=== PATIENT | female | born 1960 | race Caucasian/White ===

== ENCOUNTER 2016-12-07 11:12 | Emergency (ER) | payer OTHER ==
[~2016-12-07] VITALS: Ht 177.8 cm; Wt 72.7 kg
[~2016-12-07 11:12] MED LIST: ACET1TAB42 PO; DIPH25CA6 PO; DOCU-41 PO; IMI100 PO; LAMO100T2 PO; NORE0.3523 PO; OXYM30SP18 NS; POLY17PO2 PO; POLY17PO6 PO; PROC-4 PO; VENL150C PO; marijuana INH
[2016-12-07 11:22] VITALS: BP 151/91; PULSE 108; RESP 20; O2SAT 100
[2016-12-07 11:35] VITALS: BP 125/72; PULSE 76; RESP 16; O2SAT 100
--- NOTE | 2016-12-07 11:44 | ED.REPORT ---
HPI-GI Bleed Date of Service Dec 07, 2016 ED Provider: Robi Johansen Patient is a 56 year old female who presents to the ED complaining of rectal bleeding. She reports that the toilet water is full of bright red blood whenever she urinates or defecates. Associated symptoms include weakness, confusion, dizziness, lightheadedness (onset four days ago), shaking, and problems walking. She was transfused at our facility about a month ago for similar symptoms. She states that she has a history of bleeding problems and her mother has hemophilia. She has seen Dr. Trejo and is waiting for the results of her blood tests to see if she is hemophilic. Review of her coagulation studies dated show normal coagulation. Nursing Notes Stated Complaint: ANEMIA,BLOOD LOSS Chief Complaint: Female Abdominal Pain Nursing Notes Reviewed: Yes Allergies: Coded Allergies: Sulfa (Sulfonamide Antibiotics) (Verified Allergy, Intermediate, hives/ rash, 12/07/16) Scheduled ([marijuana]) 1 DOSE INH DAILY Docusate Sodium (Colace) 100 Mg Capsule 100 MG PO Every other Day Lamotrigine (Lamotrigine) 100 Mg Tablet 100-200 MG PO BID Norethindrone (Lyza) 0.35 Mg Tablet 0.35 MG PO DAILY Polyethylene Glycol 3350 (Polyethylene Glycol 3350) 17 Gm Powd.pack 17 GM PO Q2DAY Polyethylene Glycol 3350 (Miralax) 17 Gm Powd.pack 17 GM PO DAILY Venlafaxine ER (Effexor XR) 150 Mg Capsule 150 MG PO DAILY Scheduled PRN Acetaminophen/Codeine 300-30mg (Acetaminophen/Codeine 300-30mg) 1 Each Tablet 2 TABLET PO Q4H PRN PRN For Headache Oxymetazoline HCl (Nasal [place] Sinus) 30 Ml [place] 1 SPRAY NS DAILY PRN PRN For Congestion Prochlorperazine Maleate (Compazine) 10 Mg Tablet 10 MG PO TID PRN PRN zhao with nausea Sumatriptan (Imitrex) 100 Mg Tablet 100 MG PO PRN Headache diphenhydrAMINE HCl (Benadryl) 25 Mg Capsule 25 MG PO HS PRN PRN For Congestion General Time Seen by Provider: 11:50 Chief Complaint Chief Complaint: Other (Rectal bleeding) Hx Obtained From: Patient Arrived By: Walk-in Recent Healthcare: Recent doctor visit, Recent testing Similar Sx Previous: Yes Past Medical History Past Medical History Notes: GI Dr. Ewing As of 12/07 patient states she has had 2 colonoscopies in past 6 mo. Past Medical History Seizures Anxiety Migraine Reports: Cancer Past Surgical History s/p colonoscopy (small internal hemorrhoid ) and cold biopsy forceps removal of a rectal polyp on 07/02/[address] Ewing L breast bx Reports: Tonsillectomy Family History Noncontributory Smoking History Former Smoker Social History Other Social History: Good social support, Local resident Ambulatory Status Independent Review of Systems Constitutional: Reports: Weakness - generalized, Denies: Fever GI: Reports: Abdominal pain, Hematochezia Neurologic: Reports: Confusion, Lightheaded, Problem walking, Shaking, Denies: Change LOC Complete sys rev & neg: except as marked. Physical Exam Initial Vital Signs Vital Signs (First) Date Time Temp Pulse Resp B/P Pulse Ox O2 Delivery O2 Flow Rate FiO2 12/07/16 11:22 36.4 108 20 151/91 100 Room Air Initial VS: Reviewed Head / Eyes: Atraumatic, Normocephalic Neck: Full range of motion Skin: Warm, Dry Neurologic: Alert, Oriented, Nonfocal Psychiatric: Mood/affect normal, Behavior normal, Normal thought content General/Constitutional: Awake, Alert, Well appearing, Well developed Respiratory / Chest: Breath sounds NL, Breath sounds = bilat, No respiratory distress Cardiovascular: Heart rate NL, Regular rhythm, Heart sounds NL, No gallop, No murmurs, No rubs Abdomen: Soft, Non-tender Rectum / Perineum: Sphincter tone NL trace blood on fingertip, guaiac positive Interpretation & Diagnostics Lab Results Interpretation Result Diagram: 12/07/16 1155 12/07/16 1155 Test 12/07/16 11:55 White Blood Count 7.4th/mm3 (3.8-10.1) Red Blood Count 3.38mil/mm3 (3.90-5.20) Hemoglobin 6.6g/dL (12.0-15.6) Hematocrit 22.8% (35.0-46.0) Mean Corpuscular Volume 67.5fL (81-100) Mean Corpuscular Hemoglobin 19.5pg (27.0-35.0) Mean Corpuscular Hemoglobin Concent 28.9% (32.0-37.0) Red Cell Distribution Width 21.2% (12.3-15.4) Platelet Count 272bil/L (150-400) Neutrophils (%) (Auto) 67.7% (40-74) Lymphocytes (%) (Auto) 21.3% (14-46) Monocytes (%) (Auto) 9.0% (4-12) Eosinophils (%) (Auto) 1.5% (0-5) Basophils (%) (Auto) 0.4% (0-3) Hematology Comments Prothrombin Time 10.5sec (8.1-12.5) Prothromb Time International Ratio 0.98ratio Sodium Level 135mEq/L (134-144) Potassium Level 3.8mEq/L (3.5-5.2) Chloride Level 100mEq/L (97-108) Carbon Dioxide Level 23mmol/L (18-29) Blood Urea Nitrogen 13mg/dL (6-24) Creatinine 0.81mg/dL (0.57-1.00) Estimat Glomerular Filtration Rate 106mL/min (>59) Glucose Level 110mg/dL (60-99) Calcium Level 9.0mg/dL (8.5-10.1) Total Bilirubin 0.2mg/dL (0.0-1.2) Aspartate Amino Transf (AST/SGOT) 13U/L (0-50) Alanine Aminotransferase (ALT/SGPT) 9U/L (0-32) Alkaline Phosphatase 59U/L (25-150) Total Protein 6.9g/dL (6.4-8.4) Albumin 4.6g/dL (3.4-5.0) Hold Patel Top Tube Received (Received) ECG Interpretation ECG Interpretation: sinus rate 68 no acute changes Time: 12:02 Interpreted by: ED physician Re-Eval/Medical Decision Med Decision/Clinical Course 56-year-old female with chronic GI blood loss and symptomatic anemia. Has required transfusions previously. Recently evaluated by hematology for possible coagulopathy, coagulation studies have been normal. She had mild tachycardia but otherwise is hemodynamically stable, have not noted any ongoing blood loss in the emergency department. She will be transfused 3 L and referred back to surgery for outpatient follow-up and treatment of hemorrhoids which are thought to be discharged for bleeding. Re-Evaluation/Progress : Time of Eval: 13:15 Re-Evaluation/Progress Note: Rechecked patient. Discussed coagulation test results. Discussed options of blood transfusion. Patient is requesting trasnfusion. Counseled Regarding: Diagnosis, Lab results, Need for follow-up, When/why to return to ED Discharge & Departure Impression: Primary Impression: Rectal bleeding Additional Impression: Anemia Anemia type: unspecified type Qualified Code: D64.9 - Anemia, unspecified Disposition: Home Discharge Condition All VS Reviewed: Yes Condition: Improved Additional Instructions: In the ED today we evaluated ongoing blood loss and reviewed records related to concern for hemophilia. Coagulation studies are normal, you do not have hemophilia. We transfused 3 units of blood, we suggest following up with Dr Trejo and Dr Sharma as planned. Return to ED for severe bleeding (passing blood rectally that soaks through clothing or causes you to faint). Referrals: Peng Sweeney DO (PCP) Ananth Sharma MD Scribe Attestation Portions of this note were transcribed by Robert Wong. I, Dr. Johansen personally performed the history, physical exam and medical decision-making; I reviewed and confirmed the accuracy of the information in the transcribed note. Signed by: Robert Wong 12/07/16, 1813 copies to: Ananth Sharma MD; Peng Sweeney DO; Sushant Chery MD, Donald L MD Dec 07, 2016 11:44 ROBERT WONG Dec 07, 2016 12:19
[2016-12-07 12:27] LABS: INR 0.98 ratio
[2016-12-07 13:06] LABS: EOSINOPHILS % (AUTO) 1.5 % (0-5); Mean Corpuscular Hemoglobin 19.5 pg (27.0-35.0); Mean Corpuscular Volume 67.5 fL (81-100); NEUTROPHILS % (AUTO) 67.7 % (40-74); Platelet Count 272 bil/L (150-400)
[2016-12-07 13:07] LABS: BASOPHILS % (AUTO) 0.4 % (0-3)
[2016-12-07 17:33] VITALS: BP 132/79; RESP 18; O2SAT 97
[2016-12-07 19:52] VITALS: BP 135/90; PULSE 81; RESP 14; O2SAT 100
[2016-12-07 21:04] VITALS: BP 140/93; PULSE 71; RESP 14; O2SAT 100
[2017-02-15] MEDS ORDERED: POLY17PO6 PO (16:00)
[2017-02-15] MEDS ORDERED: IMI100 PO (16:00)
[2017-02-15] MEDS ORDERED: DOCU-41 PO (16:00)
[2017-02-15] MEDS ORDERED: LAMO100T2 PO ×2 (16:00)
[2017-02-15] MEDS ORDERED: DIPH25CA6 PO (16:00)
[2017-02-15] MEDS ORDERED: PROC-4 PO (16:00)
[2017-02-15] MEDS ORDERED: VENL150T3 PO (16:00)
== END 2016-12-07 20:28 | disposition home or self-care (01) ==
LOC: SED 11:12
DX: K62.5 Hemorrhage of anus and rectum (principal); D64.9 Anemia, unspecified; R41.0 Disorientation, unspecified; R26.2 Difficulty in walking, not elsewhere classified; Z98.890 Other specified postprocedural states; Z87.891 Personal history of nicotine dependence; Z88.2 Allergy status to sulfonamides
CPT/HCPCS: 36415; 36430; 80053; 85025; 85610; 86850; 86922; 93005; 96360; 96361; 99285; P9021

== ENCOUNTER 2017-01-21 09:21 | Emergency (ER) | payer OTHER ==
[~2017-01-21] VITALS: Ht 177.8 cm; Wt 72.7 kg
[~2017-01-21 09:21] MED LIST changes: -ACET1TAB42 PO; -NORE0.3523 PO; -POLY17PO2 PO
[2017-01-21 09:25] VITALS: BP 145/79; PULSE 75; RESP 12; O2SAT 100
--- NOTE | 2017-01-21 09:35 | ED.REPORT ---
HPI-Psychiatric Illness Date of Service Jan 21, 2017 ED Provider: Dr. Barraza A 56 year old female presents to the ED complaining of Nursing Notes Stated Complaint: EMOTIONALLY OVERWHELMED Chief Complaint: Psychiatric Complaint Nursing Notes Reviewed: Yes Allergies: Coded Allergies: Sulfa (Sulfonamide Antibiotics) (Verified Allergy, Intermediate, hives/ rash, 12/07/16) Scheduled ([marijuana]) 1 DOSE INH DAILY Docusate Sodium (Colace) 100 Mg Capsule 100 MG PO Every other Day Lamotrigine (Lamotrigine) 100 Mg Tablet 100-200 MG PO BID Polyethylene Glycol 3350 (Miralax) 17 Gm Powd.pack 17 GM PO DAILY Venlafaxine ER (Effexor XR) 150 Mg Capsule 150 MG PO DAILY Scheduled PRN Oxymetazoline HCl (Nasal [place] Sinus) 30 Ml [place] 1 SPRAY NS DAILY PRN PRN For Congestion Prochlorperazine Maleate (Compazine) 10 Mg Tablet 10 MG PO TID PRN PRN zhao with nausea Sumatriptan (Imitrex) 100 Mg Tablet 100 MG PO PRN Headache diphenhydrAMINE HCl (Benadryl) 25 Mg Capsule 25 MG PO HS PRN PRN For Congestion General Time Seen by MD: 09:53 Past Medical History Past Medical History Notes: GI Dr. Ewing As of 12/07 patient states she has had 2 colonoscopies in past 6 mo. Past Medical History Seizures Anxiety Migraine Reports: Cancer Past Surgical History s/p colonoscopy (small internal hemorrhoid ) and cold biopsy forceps removal of a rectal polyp on 07/02/[address] Gildardo Maciel breast bx removal of melanoma from abdominal skin Reports: Tonsillectomy Family History Noncontributory Smoking History Former Smoker Social History Other Social History: Good social support, Local resident Ambulatory Status Independent Physical Exam Initial Vital Signs Vital Signs (First) Date Time Temp Pulse Resp B/P Pulse Ox O2 Delivery O2 Flow Rate FiO2 01/21/17 09:25 36.2 75 12 145/79 100 Room Air Discharge & Departure Referrals: Peng Sweeney DO (PCP) Hollie Attestation Portions of this note were transcribed by Michael Alexandra. I, Dr. Barraza personally performed the history, physical exam and medical decision-making; I reviewed and confirmed the accuracy of the information in the transcribed note. Signed by: Hollie Saldivar, 01/21/2017 0956. copies to: Peng Sweeney Timothy S DO Jan 21, 2017 09:35 Michael Alexandra Jan 21, 2017 10:00
[2017-02-15] MEDS ORDERED: IMI100 PO (16:00)
[2017-02-15] MEDS ORDERED: DIPH25CA6 PO (16:00)
[2017-02-15] MEDS ORDERED: LAMO100T2 PO ×2 (16:00)
[2017-02-15] MEDS ORDERED: PROC-4 PO (16:00)
[2017-02-15] MEDS ORDERED: POLY17PO6 PO (16:00)
[2017-02-15] MEDS ORDERED: VENL150T3 PO (16:00)
[2017-02-15] MEDS ORDERED: DOCU-41 PO (16:00)
== END 2017-01-21 10:30 | disposition left against medical advice (07) ==
LOC: SED 09:21
DX: F99 Mental disorder, not otherwise specified (principal); Z53.21 Procedure and treatment not carried out due to patient leaving prior to being seen by health care provider

== ENCOUNTER 2017-02-11 12:29 | Emergency (ER) | payer OTHER ==
[~2017-02-11] VITALS: Ht 177.8 cm; Wt 68.2 kg
[2017-02-11 12:31] VITALS: BP 148/89; PULSE 103; RESP 22; O2SAT 100
--- NOTE | 2017-02-11 12:50 | ED.REPORT ---
HPI-General Illness Date of Service Feb 11, 2017 ED Provider: Chen Forde MD The patient is a 56 year old female with history of anxiety, depression, panic attacks, seizures, and migraines, who presents to the emergency department complaining of rectal bleeding. The patient states she has a chronic GI bleed of unknown etiology. She has been seen and evaluated several times. She received a a blood transfusion 3 weeks ago. The bleeding started to get worse about 5 days ago. She complains of rectal pain, generalized weakness, lightheadedness (worse with standing), fatigue, and anxiety. She has been unable to stand due to the weakness. She presents today requesting a blood transfusion. Nursing Notes Stated Complaint: LOW ENERGY,NEEDS BLOOD Chief Complaint: Female Abdominal Pain Nursing Notes Reviewed: Yes Allergies: Coded Allergies: Sulfa (Sulfonamide Antibiotics) (Verified Allergy, Intermediate, hives/ rash, 02/11/17) Scheduled ([marijuana]) 1 DOSE INH DAILY Docusate Sodium (Colace) 100 Mg Capsule 100 MG PO Every other Day Lamotrigine (Lamotrigine) 100 Mg Tablet 100-200 MG PO BID Polyethylene Glycol 3350 (Miralax) 17 Gm Powd.pack 17 GM PO DAILY Venlafaxine ER (Effexor XR) 150 Mg Capsule 150 MG PO DAILY Scheduled PRN Oxymetazoline HCl (Nasal [place] Sinus) 30 Ml [place] 1 SPRAY NS DAILY PRN PRN For Congestion Prochlorperazine Maleate (Compazine) 10 Mg Tablet 10 MG PO TID PRN PRN zhao with nausea Sumatriptan (Imitrex) 100 Mg Tablet 100 MG PO PRN Headache diphenhydrAMINE HCl (Benadryl) 25 Mg Capsule 25 MG PO HS PRN PRN For Congestion General Time Seen by MD: 12:49 Chief Complaint Other (rectal bleed) Hx Obtained From: Patient, Other family... Arrived By: Walk-in Sudden in Onset?: No Onset Occurred: More than a week ago... Symptom Duration: Since onset Severity: Current: No pain currently Severity: Maximum: No pain Recent Healthcare: No recent hospitalization, Recent doctor visit Similar Sx Previous: Yes Past Medical History Past Medical History Notes: GI Dr. Ewing Past Medical History Seizures Anxiety Migraine Chronic GI bleed Reports: Cancer Past Surgical History S/p colonoscopy (small internal hemorrhoid ) and cold biopsy forceps removal of a rectal polyp on 07/02/[address] Gildardo Maciel breast bx Removal of melanoma from abdominal skin Reports: Tonsillectomy Family History Noncontributory Smoking History Former Smoker Social History Other Social History: Good social support, Local resident Ambulatory Status Independent Review of Systems +rectal bleed Full Review of Systems Constitutional: Reports: Fatigue, Weakness - generalized GI: Reports: Rectal pain Neurologic: Reports: Lightheaded, Weakness Psychiatric: Reports: Anxiety Complete sys rev & neg: except as marked. Physical Exam Vital Signs Vital Signs Date Time Temp Pulse Resp B/P Pulse Ox O2 Delivery O2 Flow Rate FiO2 02/11/17 12:31 36.4 103 22 148/89 100 Room Air Initial VS: Reviewed, Vital signs abnormal Head / Eyes: Atraumatic, Normocephalic, PERRL ENT: Mucous membranes moist, Conjunctiva normal, No scleral icterus Neck: Supple, Non-tender, Full range of motion Respiratory: Breath sounds normal, Clear to auscultation, No respiratory distress Cardiovascular: Regular rate & rhythm, Heart sounds normal, Intact distal pulses Abdomen / GI: Soft, Non-tender, No guarding, No rebound, No distention Lymphatic: No lymphadenopathy Extremities: Vascular intact, Neuro intact, No swelling, No tenderness Skin: Warm, Dry, No cyanosis Psychiatric: Mood/affect normal, Behavior normal, Normal thought content General/Constitutional: Awake, Alert, Cooperative Behavior: Positive: Anxious, Tearful RECTUM: Almost complete circumferential hemorrhoids with gross blood present. Neurologic: Oriented X3, Speech NL, No motor deficits, No sensory deficits, Cerebellar NL, Memory NL 5/5 strength to bilateral lower extremities. Interpretation & Diagnostics Lab Results Interpretation Result Diagram: 02/11/17 1310 02/11/17 1310 Test 02/11/17 13:10 White Blood Count 6.1th/mm3 (3.8-10.1) Red Blood Count 2.99mil/mm3 (3.90-5.20) Hemoglobin 7.9g/dL (12.0-15.6) Hematocrit 26.1% (35.0-46.0) Mean Corpuscular Volume 87.3fL (81-100) Mean Corpuscular Hemoglobin 26.4pg (27.0-35.0) Mean Corpuscular Hemoglobin Concent 30.3% (32.0-37.0) Red Cell Distribution Width 24.6% (12.3-15.4) Platelet Count 311bil/L (150-400) Neutrophils (%) (Auto) 63.3% (40-74) Lymphocytes (%) (Auto) 26.1% (14-46) Monocytes (%) (Auto) 7.9% (4-12) Eosinophils (%) (Auto) 2.0% (0-5) Basophils (%) (Auto) 0.5% (0-3) Sodium Level 135mEq/L (134-144) Potassium Level 3.7mEq/L (3.5-5.2) Chloride Level 98mEq/L (97-108) Carbon Dioxide Level 20mmol/L (18-29) Blood Urea Nitrogen 13mg/dL (6-24) Creatinine 0.77mg/dL (0.57-1.00) Estimat Glomerular Filtration Rate 112mL/min (>59) Glucose Level 110mg/dL (60-99) Calcium Level 10.3mg/dL (8.5-10.1) Magnesium Level 2.1mg/dL (1.6-2.6) Total Bilirubin 0.2mg/dL (0.0-1.2) Aspartate Amino Transf (AST/SGOT) 20U/L (0-50) Alanine Aminotransferase (ALT/SGPT) 21U/L (0-32) Alkaline Phosphatase 64U/L (25-150) Total Protein 7.3g/dL (6.4-8.4) Albumin 4.6g/dL (3.4-5.0) Lipase 28U/L (13-60) ECG Interpretation ECG Interpretation: Sinus rhythm with a rate of 75 Right bundle morphology No acute ST or T wave changes No changed from EKG taken on 12/07/16 Time: 13:50 Interpreted by: ED physician Re-Eval/Medical Decision Med Decision/Clinical Course This very anxious patient with some very significant medical issues. She is very concerned about her health and continued need for blood. He spoke with Dr. Perez cases the patient does not have any bleeding issues. The patient has had her workup and it appears need to hemorrhoidectomy. I spoke with Dr. Sharma, they will contact the patient to set up an appointment so she may have her hemorrhoidectomy. It appears that the bleeding from her hemorrhoids is what is causing her ongoing anemia. Given the patient's symptomatic she will receive a transfusion today. The patient's heart rate fluctuated given how upset she was, when she was calm pulse was in the 70s. The patient is pink however she has ongoing bleeding, it is not severe, she has stable vital signs. They given that she will continue to bleed she will be given blood. This bleeding is chronic and therefore she does not require admission, she has a plan to get this taken care of. Source of Hx: Old records, Family Time of Eval: 14:09 Re-Evaluation/Progress Note: Rechecked the patient. Time of Eval: 14:46 Re-Evaluation/Progress Note: Discussed plan for depart after blood transfusion. Discussed importance of followup with the surgeon. Consultation #1: Referral / Consult Name: Sushant Chery MD Consulted With: Full Stack Software Developer Call Returned at: 14:13 Auto Body Detailer: Agrees with eval, Agrees with plan Note: He is not really managing this patient anymore. He recommends giving her 2 units of blood and discharging her with a referral to general surgery. Consultation #2: Referral / Consult Name: Ananth Sharma MD Consulted With: Surgeon Call Returned at: 14:25 Note: Spoke with the on-call appointment. The patient just needs to call and make the appointment. Counseled Regarding: Diagnosis, Lab results, Need for follow-up, When/why to return to ED Discharge & Departure Primary Impression: Anemia Anemia type: unspecified type Qualified Code: D64.9 - Anemia, unspecified Additional Impressions: Hemorrhoids Hemorrhoid type: unspecified Qualified Code: K64.9 - Unspecified hemorrhoids Anxiety Disposition: Home Discharge Condition All VS Reviewed: Yes Condition: Stable Patient Instructions: Hemorrhoidectomy (ED) Additional Instructions: Thank you for entrusting us with your care today. We have given you two units of blood while you were in the emergency department today. Please call Dr. Sharma' s office on Tuesday afternoon if they do not contact you sooner. It is important that you schedule your appointment for the hemorrhoidectomy. Seek care for any new or concerning symptoms. Referrals: Peng Sweeney DO (PCP) Ananth Sharma MD Scribe Attestation Portions of this note were transcribed by Reina Sharma. I, Dr. Forde personally performed the history, physical exam and medical decision-making; I reviewed and confirmed the accuracy of the information in the transcribed note. Signed by: Hollie Cuevas, 02/11/2017 at 1500. copies to: Ananth Sharma MD; Peng Sweeney Jena M MD Feb 11, 2017 12:50 Reina Sharma Feb 11, 2017 13:09
[2017-02-11] MEDS ORDERED: 0.9% Sodium Chloride 1,000 ML IV ONE (13:30)
[2017-02-11 13:32] LABS: BASOPHILS % (AUTO) 0.5 % (0-3); MONOCYTES % (AUTO) 7.9 % (4-12); Mean Corpuscular Hemoglobin 26.4 pg (27.0-35.0); Mean Corpuscular Volume 87.3 fL (81-100); NEUTROPHILS % (AUTO) 63.3 % (40-74); Platelet Count 311 bil/L (150-400)
[2017-02-11 13:52] LABS: Magnesium 2.1 mg/dL (1.6-2.6)
[2017-02-11 15:50] VITALS: BP 144/73; PULSE 79; RESP 11
[2017-02-11 16:10] VITALS: BP 122/93; PULSE 76; RESP 15; O2SAT 100
[2017-02-11 16:54] VITALS: BP 122/76; PULSE 70; RESP 9; O2SAT 100
[2017-02-11 19:24] VITALS: BP 173/78; PULSE 73; RESP 12; O2SAT 100
[2017-02-11 21:27] VITALS: BP 143/88; PULSE 73; RESP 22; O2SAT 100
[2017-02-15] MEDS ORDERED: DOCU-41 PO (16:00)
[2017-02-15] MEDS ORDERED: VENL150T3 PO (16:00)
[2017-02-15] MEDS ORDERED: DIPH25CA6 PO (16:00)
[2017-02-15] MEDS ORDERED: PROC-4 PO (16:00)
[2017-02-15] MEDS ORDERED: IMI100 PO (16:00)
[2017-02-15] MEDS ORDERED: POLY17PO6 PO (16:00)
[2017-02-15] MEDS ORDERED: LAMO100T2 PO ×2 (16:00)
== END 2017-02-11 14:59 | disposition home or self-care (01) ==
LOC: SED 12:29
DX: D64.9 Anemia, unspecified (principal); K64.9 Unspecified hemorrhoids; F41.0 Panic disorder [episodic paroxysmal anxiety]; F32.9 Major depressive disorder, single episode, unspecified; Z86.69 Personal history of other diseases of the nervous system and sense organs; Z85.9 Personal history of malignant neoplasm, unspecified; Z87.891 Personal history of nicotine dependence; Z88.2 Allergy status to sulfonamides
CPT/HCPCS: 36415; 36430; 80053; 83690; 83735; 85025; 86850; 86922; 93005; 96361; 96374; 99285; J2060; J7030; P9021

== ENCOUNTER 2017-02-17 13:40 | Day surgery (SDC) | payer OTHER ==
[~2017-02-17] VITALS: Ht 177.8 cm; Wt 72.5 kg
[2017-02-17] VITALS (8 sets, daily range): BP systolic 124–148; BP diastolic 74–93; PULSE 68–81; RESP 15–17; O2SAT 94–100
[~2017-02-17 13:40] MED LIST changes: +Lactated Ringer's 1,000 ML IV SCH; -OXYM30SP18 NS; -VENL150C PO; +VENL150T3 PO; -marijuana INH
[2017-02-17] MEDS ORDERED: Dexamethasone 4 mg/mL Inj ONE (13:41)
[2017-02-17] MEDS ORDERED: Ondansetron 2 mg/mL 2 mL Inj ONE (13:41)
[2017-02-17] MEDS ORDERED: Propofol 10,000 mCg/mL 20 mL Inj ONE (13:41)
[2017-02-17] MEDS ORDERED: Lidocaine PF 1% 30 mL Inj ONE (13:41)
[2017-02-17] MEDS ORDERED: fentaNYL-PF 50 mCg/mL 2 mL Inj ONE (13:41)
--- NOTE | 2017-02-17 14:27 | PCM.HPANE ---
Patient Data Date of Service: Feb 17, 2017 Surgeon Admitting Provider: Attending Provider:Ananth Sharma MD Primary Care Physician:Peng Sweeney DO Other Provider:Scarlett Camarena Anesthesia Reason for Visit Bleeding Hemorrids Ht/WT & BMI Height (Feet): 5 Height (Inches): 10 Weight (Kilograms): 70.76 Body Mass Index 22.00 Allergies Coded Allergies: Sulfa (Sulfonamide Antibiotics) (Verified Allergy, Intermediate, hives/ rash, 02/11/17) Past Anesthesia History Anesthesia History: Denies:: Abnormal Airway, Anesthesia Reactions, Difficult Intubation, Fam Anesthesia Reaction, Fam Malignant Hypertherm, Malignant Hyperthermia Diabetes History Hx Diabetes?: No MRSA MRSA: No Medications Hypertension Medication: No Home Meds Incl Beta Ghulam: No Reported Medications Prochlorperazine Maleate (Compazine)10 Mg Apjgzx47 Mg PO PRN For Nausea 02/15/17 diphenhydrAMINE HCl (Benadryl)25 Mg Ogaehqb83 Mg PO Q4 PRN For Nausea Ref 0 02/15/17 Sumatriptan (Imitrex)100 Mg Edfxmq445 Mg PO PRN migraines MR x1/ NTE 200mg/24hr 02/15/17 Venlafaxine ER 150 Mg Tab.er.72107 Mg PO DAILY Ref 0 02/15/17 Polyethylene Glycol 3350 (Miralax)17 Gm Powd.pack17 Gm PO DAILY 02/15/17 Lamotrigine 100 Mg Adbfbb813 Mg PO QPM Ref 0 02/15/17 Lamotrigine 100 Mg Xcjjcb767 Mg PO QAM Ref 0 02/15/17 Docusate Sodium (Colace)100 Mg Ubrxvav526 Mg PO Q2DAY PRN For Constipation Ref 0 02/15/17 Discontinued Reported Medications Polyethylene Glycol 3350 (Miralax)17 Gm Powd.pack17 Gm PO DAILY 11/24/16 Oxymetazoline HCl (Nasal [place] Sinus)30 Ml Spray1 [place] NS DAILY PRN For Congestion 10/28/16 diphenhydrAMINE HCl (Benadryl)25 Mg Mqymaaq29 Mg PO HS PRN For Congestion Ref 0 10/28/16 Prochlorperazine Maleate (Compazine)10 Mg Selbfe15 Mg PO TID PRN zhao with nausea 10/28/16 [marijuana] No Conflict Check1 Dose INH DAILY 10/28/16 Docusate Sodium (Colace)100 Mg Zwahmcc452 Mg PO Every other Day 10/28/16 Venlafaxine ER (Effexor XR)150 Mg Yezslvi330 Mg PO DAILY Ref 0 09/07/16 Sumatriptan (Imitrex)100 Mg Tzbrlk899 Mg PO PRN Headache 07/01/16 Lamotrigine 100 Mg Qillwk428-269 Mg PO BID Ref 0 07/01/16 History History of ENT Problems?: No HEENT History: Denies:: Abnormal Airway Cataracts Difficult Intubation Dysphagia Hearing Problem Sinus Problem Hx of Heart Problems?: Yes Cardiovascular History: Denies:: AICD Atrial Fibrillation Cardiac Surgery Chest Pain Congestive Heart Failure Edema Heart Murmur Hypertension Irregular Heartbeat Pacemaker Thrombophlebitis Valvular Heart Disease Other Cardiac History: chronic anemia - evaluated and cleared for surgery per Dr Trejo- last known H/H 7.9/26.1 on 02/11 in ED. Pt received 2 units RBC at that time Hx of Respiratory Problem?: Yes Respiratory History: Positive for:: Dyspnea (r/t anemia) Pneumonia (1979) Denies:: Asthma COPD Chest Surgery Cough Emphysema Hemoptysis Oxygen Administration Tuberculosis Use of C-PAP Machine Hx Neurologic Problems?: Yes Neurological History: Positive for:: Dizziness (r/t anemia) Headaches (migraines) Seizures (epilepsy- last seizure recently r/t skipped dose and dehydration on 02/07; none for 9 months prior) Denies:: Alzheimer's Disease CVA Dementia Parkinson's Disease Other Neurological Pertinent: recent neuro visit with revision of lamictal dosing Hx of GI Problems?: Yes Gastrointestinal History: Positive for:: Gastrointestinal Bleeding (rectal) Rectal Bleeding (dark stools and bright red blood 2-3x/day) Denies:: Cirrhosis Diverticulitis Gastroesphageal Reflux Heartburn Hepatitis Hiatal Hernia Hx of Problems?: No Genitourinary History: Denies:: HX of Hemodialysis Kidney Stones Urinary Tract Infection (frequently in her 20's) HX of Peritoneal Dialysis: No Female Hx: Positive for:: Problems with Breasts? (left breast bx 1981-benign, currentl lump in L breast) Denies:: Currently Endometriosis Pelvic Inflammatory Skin History: Denies:: History Skin Disorders? Pressure Ulcers Hx Musculoskeletal Problems?: No Musculoskeletal History: Positive for:: Back Injury (slipped disc at age 15) Denies:: Joint Replacement Musculoskeletal Trauma Hx of Psycho/Social Problems?: Yes Psycho Social History: Positive for:: Anxiety (panic disorder) Hx Depression Denies:: Bipolar Disorder Suicide Attempt Hx Surgeries?: Yes (L BR BX, TONSILECTOMY, endoscopy/colonoscopy) Hx Any Other Health Problems?: Yes Other History: Positive for:: Cancer (melanoma removed from abdomen skin) Hospitalization (surgeries) Denies:: Thyroid Disease History Blood Transfusions: Positive for:: Blood Transfusions (02/11- 2U RBC) Denies:: Blood Transfuse Reaction Hx Diabetes: No Hx Alcohol Use: YesAlcoholic Drinks Per Day: 1-2 weeklyHx Substance Use: Yes (marijuana to relax) Smoking Status: Former Smoker Have You Smoked inLast 12 mo: No Stop/Bang S-Snoring: Do You Snore Loudly: No T-Tired: feel tired, fatigued: No O-Obsered: Observed not breath: No P-Blood Pressure: treated: No B- Body Mass Index > 35 kg/m2: No A- Age over 50: No N- Neck Large Circumference: No G- Gender Male: No COLIN Risk Assessment: Low Risk, <3 Yes Risk Assessment Category Category 1A: Patient has history of documented sleep apnea, and HAS NOT received any narcotic, sedative or anesthesia administration during this stay. Category 1B: Patient has history of documented sleep apnea, and HAS received any narcotic , sedative or anesthesia administration during this stay Category 2: Patient has SUSPECTED Obstructive Sleep Apnea, and HAS received any narcotic , sedative or anesthesia administration during this stay. Category 3: Patient has SUSPECTED Obstructive Sleep Apnea and HAS NOT received narcotic, sedative or anesthesia administration during this stay. Category 4: Outpatient in Procedural Areas with known sleep apnea or who screen positive for High Risk via the STOP/BANG questionnaire. Exam Exam Vital Signs Vital Signs Date Time Temp Pulse Resp B/P Pulse Ox O2 Delivery O2 Flow Rate FiO2 02/17/17 14:06 36.0 81 16 124/74 99 Room Air General Appearance: Alert, Oriented X3, Cooperative, No Acute Distress HEENT/AIRWAY: MP 1, Neck Movement (from), Mouth Opening (3 fb), Other (>3 fb) Lungs: Clear to Auscultation, Normal Air Movement Heart: Exam Unremarkable, Regular Rate/Rhythm, No Murmurs/Rubs/Gallops Plan Impression Patient chart reviewed, patient interviewed and anesthestic plan with risks, benefits, and alternatives discussed, and informed consent obtained. NPO Status: Appropriate ASA Physical Status: ASA2 Mod Systemic Disease Anesthetic Plan: GA Bene/Risks/Altern/Consents: Yes HP Complete Prior to Induction: Yes Rodger Robles MD Feb 17, 2017 14:27
[2017-02-17] MEDS ORDERED: Lactated Ringer's 1,000 ML IV ONE (14:33)
[2017-02-17] MEDS ORDERED: Lactated Ringer's 500 ML IV PRN (14:54)
[2017-02-17] MEDS ORDERED: Lactated Ringer's 1,000 ML IV SCH (14:54)
[2017-02-17] MEDS ORDERED: fentaNYL-PF 50 mCg/mL 2 mL Inj IVPUSH PRN (14:55)
[2017-02-17] MEDS ORDERED: Labetalol 5 mg/mL 4 mL Inj IV PRN (14:55)
[2017-02-17] MEDS ORDERED: Atropine 0.4 mg/mL Inj IVPUSH PRN (14:55)
[2017-02-17] MEDS ORDERED: Bupivacaine Liposome 1.3% 20 mL Inj ONE (14:55)
[2017-02-17] MEDS ORDERED: Ondansetron 2 mg/mL 2 mL Inj IVPUSH PRN (14:55)
[2017-02-17] MEDS ORDERED: HYDROmorphone 1 mg/mL Inj IVPUSH PRN (14:55)
[2017-02-17] MEDS ORDERED: Phenylephrine 10,000 mCg/mL Inj IVPUSH PRN (14:55)
[2017-02-17] MEDS ORDERED: EPHEDrine Sulfate 50 mg/mL Inj IM PRN (14:55)
[2017-02-17] MEDS ORDERED: EPHEDrine Sulfate 50 mg/mL Inj IVPUSH PRN (14:55)
[2017-02-17] MEDS ORDERED: oxyCODONE-Acetamin 5-325 mg Tablet PO PRN (15:10)
--- NOTE | 2017-02-17 18:42 | PCM.ANEP1 ---
Post Anesthesia Phase 1 PACU Phase 1 Assessment Date of Service: Feb 17, 2017 Vital Signs Vital Signs Date Time Temp Pulse Resp B/P Pulse Ox O2 Delivery O2 Flow Rate FiO2 02/17/17 16:24 68 16 100 Room Air 02/17/17 15:56 69 16 147/93 100 Room Air 02/17/17 15:50 76 16 148/87 97 Room Air 02/17/17 15:35 78 17 146/84 98 Room Air 02/17/17 15:30 73 15 137/77 99 Room Air 02/17/17 15:25 74 17 126/76 97 Room Air 02/17/17 15:20 36.4 77 17 148/77 94 Room Air 02/17/17 14:06 36.0 81 16 124/74 99 Room Air Anesthetic Administered: GA Level of Alertness: Awake, talking [place]'s with Equal Strength: Yes Pain: No Nausea or Vomiting: No Oxygen Delivery: Room Air Lungs: Clear to Auscultation, Normal Air Movement Dermatome Level: Full Sensation Rodger Robles MD Feb 17, 2017 18:42
--- NOTE | 2017-02-17 18:42 | PCM.ANEP2 ---
Post Anesthesia Evaluation ASA/CMS Post Anesthesia Date of Service: Feb 17, 2017 VS in Patient's Normal Range?: Yes Resp Stable; Airway Patent?: Yes CV Function & Hydration Stable: Yes Mental Status Recovered?: Yes Pain control Satisfactory?: Yes N/V Control Satisfactory?: Yes Rodger Robles MD Feb 17, 2017 18:42
--- NOTE | 2017-02-18 02:03 | OP ---
[address] [address] OPERATIVE REPORT PATIENT: EDEN SCHENIDER : 1960 MR#: [id number] ADMIT: 02/17/2017 JOB ID: [id number] DATE OF SURGERY: 02/17/2017 ANESTHESIA: General. PREOPERATIVE DIAGNOSIS(ES): 1. Iron deficiency anemia. 2. Hemorrhoids. POSTOPERATIVE DIAGNOSIS(ES): 1. Iron deficiency anemia. 2. Hemorrhoids. PROCEDURES: Hemorrhoidectomy (two columns, internal and external, as well as resection of anal tag. SURGEON: Ananth Sharma MD. YARD INSPECTOR: Stan Griffin PA-C (the registered dental assistant rda was required for the safe and timely completion of the case). COMPLICATIONS: None. ESTIMATED BLOOD LOSS: Minimal. CONDITION: Satisfactory. SPECIMEN: 1. Right lateral hemorrhoid column. 2. Left lateral hemorrhoid column. 3. Anterior tag. FINDINGS: The patient had very large inflamed hemorrhoids. The two largest were lower left lateral and right lateral, which were both taken. There is also a large tag anteriorly which was taken. At the conclusion, she still had more redundant inflamed hemorrhoid tissue, but because of concern for stenosis no more were taken. INDICATIONS/SIGNIFICANT HISTORY: The patient is a 56-year-old woman who has had bright red blood per rectum for about eight years. She has developed significant anemia requiring multiple transfusions. She underwent extensive workup, including a colonoscopy, upper endoscopy, capsule endoscopy, all with no explanation for the bleeding other than hemorrhoids. OPERATIVE TECHNIQUE: The patient was taken to the operating room and placed in supine position. General anesthesia was administered. She was then placed in lithotomy. The perineum was prepped and draped in standard surgical fashion and a procedure pause was performed. I began with a digital rectal exam. Other than obvious redundant hemorrhoidal tissue, there was no nodularity or other abnormalities. A small anal speculum was inserted and the anus inspected. There was circumferentially redundant inflamed hemorrhoids, but the largest two columns were left lateral and right lateral. I used the LigaSure Precise device and began with the right lateral column. I marched up taking care to avoid the sphincter complex and removed very large internal/external hemorrhoids. I then took off the left internal and external component in similar fashion. I then excised anterior tag from the anal verge using electrocautery. Liposomal bupivacaine was then injected. The anus was packed with hemostatic gauze. Case was then concluded.
--- NOTE | 2017-02-21 13:20 | PATH ---
SURGICAL PATHOLOGY Attending Physician:Ananth Sharma MD CASE STATUS: Signed Out PATIENT NAME: EDEN SCHNEIDER PID: [id number] : 1960 DATE COLLECTED:02/17/2017 00:00 SPECIMEN: 1: Hemorrhoids 2: Hemorrhoids 3: Skin, Skin Tag CLINICAL HISTORY: HEMORRHOID 1). RIGHT LATERAL INTERNAL EXTERAL HEMORRHOID 2). LEFT LATERAL INTERNAL EXTERAL HEMORRHOID 3). ANTERIOR ANAL TAG FINAL DIAGNOSIS: 1. Specimen Designated Right Lateral Internal/External Hemorrhoid: Internal/external hemorrhoid, negative for atypia. 2. Specimen Designated Left Lateral Internal/External Hemorrhoid: Internal/external hemorrhoid, negative or atypia. 3. Specimen Designated Anterior Anal Tag: Anal fibroepithelial polyp, negative for atypia. ICD10 K64 GROSS DESCRIPTION: The specimen is received in three formalin filled containers labeled with the patient's name. 1). The specimen is sublabeled "right lateral internal/external hemorrhoid" and consists of a 4.0 x 2.5 x 1.5 CM portion of tissue. The specimen is inked blue. 2 marketing development representative sections are submitted in cassette 1A. 2). The specimen is sublabeled "left lateral internal/external hemorrhoid" and consists of a 4.0 x 1.6 x 1.0 CM portion of tissue. The specimen is inked blue. 2 marketing development representative sections are submitted in cassettes 2A. 3). The specimen is sublabeled "anterior anal tag" and consists of a 1.2 x 0.7 x 0.6 CM pink-lara 2 casas-moses dome shaped portion of tissue. The specimen is inked blue, trisected and entirely submitted in cassette 3A. 02/18/2017 [facility] ICD-9 CODES: CPT CODES: 1: 13726 2: 62108 3: 55579 Electronically Signed Out Robi Peters MD [facility] Pathology [facility] [place] [address] Technical component performed at [facility], [facility] [address], [place], [address]
== END 2017-02-17 23:59 | disposition home or self-care (01) ==
LOC: SAS 13:40
PROVIDERS: ATTEND General Practice
DX: K64.4 Residual hemorrhoidal skin tags (principal); K64.8 Other hemorrhoids; D62 Acute posthemorrhagic anemia; K59.00 Constipation, unspecified; G40.909 Epilepsy, unspecified, not intractable, without status epilepticus; F32.9 Major depressive disorder, single episode, unspecified; F41.9 Anxiety disorder, unspecified; F12.90 Cannabis use, unspecified, uncomplicated; Z87.891 Personal history of nicotine dependence; Z85.820 Personal history of malignant melanoma of skin
CPT/HCPCS: 46260; 88304; J1100; J2405; J3010; J7120

== ENCOUNTER 2017-02-19 13:34 | Emergency (ER) | payer OTHER ==
[~2017-02-19] VITALS: Ht 177.8 cm; Wt 68.2 kg
[~2017-02-19 13:34] MED LIST changes: -Lactated Ringer's 1,000 ML IV SCH
[2017-02-19 13:47] VITALS: BP 133/74; PULSE 100; RESP 22; O2SAT 100
[2017-02-19] MEDS ORDERED: OXYC-474 PO (20:13)
== END 2017-02-19 14:51 | disposition left against medical advice (07) ==
LOC: SED 13:34
DX: K91.840 Postprocedural hemorrhage of a digestive system organ or structure following a digestive system procedure (principal); Z53.21 Procedure and treatment not carried out due to patient leaving prior to being seen by health care provider

== ENCOUNTER 2017-02-19 17:46 | Emergency (ER) | payer OTHER ==
[~2017-02-19] VITALS: Ht 177.8 cm; Wt 68.2 kg
[2017-02-19 18:32] VITALS: BP 131/69; PULSE 112; RESP 14; O2SAT 100
[2017-02-19 18:45] VITALS: BP 114/46; PULSE 90; RESP 16; O2SAT 100
--- NOTE | 2017-02-19 18:59 | ED.REPORT ---
HPI-Seizure Date of Service Feb 19, 2017 ED Provider: Dr. Robi Johansen MD A 56 year old female with history of seizure disorder, anxiety, depression, panic attacks and migraines presents to the ED via EMS following 3 generalized tonic clonic seizures that occurred just prior to arrival. Patient was post- ictal en route. reports that each seizure lasted approx. 1 minute and occurred within a 1 hour period. Patient has been noncompliant with her Lamictal for the past few days due to recent surgery. claims that this is the most seizures the patient has ever experienced at one time. Previous post ictal states have lasted up to a week. She was recently seen in the ED on for rectal bleeding and was diagnosed with hemorrhoids by Dr. Sharma who performed a hemorrhoidectomy on 02/17. recorded a fever of 103 F earlier this afternoon that has since resolved. Nursing Notes Stated Complaint: SEIZURE Chief Complaint: Seizure Nursing Notes Reviewed: Yes Allergies: Coded Allergies: Sulfa (Sulfonamide Antibiotics) (Verified Allergy, Intermediate, hives/ rash, 02/11/17) Scheduled Lamotrigine (Lamotrigine) 100 Mg Tablet 100 MG PO QAM Lamotrigine (Lamotrigine) 100 Mg Tablet 200 MG PO QPM Polyethylene Glycol 3350 (Miralax) 17 Gm Powd.pack 17 GM PO DAILY Venlafaxine ER (Venlafaxine ER) 150 Mg Tab.er.24 150 MG PO DAILY Scheduled PRN Docusate Sodium (Colace) 100 Mg Capsule 100 MG PO Q2DAY PRN PRN For Constipation Oxycodone (Roxicodone) 5 Mg Tablet 5-10 MG PO every 6 hours PRN PRN For Pain Prochlorperazine Maleate (Compazine) 10 Mg Tablet 10 MG PO PRN For Nausea Sumatriptan (Imitrex) 100 Mg Tablet 100 MG PO PRN migraines MR x1/ NTE 200mg/24hr diphenhydrAMINE HCl (Benadryl) 25 Mg Capsule 25 MG PO Q4 PRN PRN For Nausea General Time Seen by Provider: 18:20 Chief Complaint Chief Complaint: Seizure, generalized Hx Obtained From: Patient, EMS Arrived By: Ambulance Onset Occurred: Just prior to arrival Symptom Duration: 1 - 15 minutes Progression Since Onset: Gradually improving Associated with: Reports: Confusion post-seizure, Disoriented post-seizure, Fever (103 F that has since resolved) Pertinent Negative: Pt denies other symptoms Recent Healthcare: Recent doctor visit, Recent hospitalization Past Medical History Past Medical History Notes: PCP: Dr. Jenny Burgos Past Medical History Seizures Anxiety Migraine Chronic GI Bleeds Reports: Cancer, Transient ischemic attack (15 years ago) Past Surgical History Hemorrhoidectomy on 02/17 S/p colonoscopy (small internal hemorrhoid ) and cold biopsy forceps removal of a rectal polyp on 07/02/[address] Gildardo Maciel breast bx Removal of melanoma from abdominal skin Reports: Tonsillectomy Family History Noncontributory Smoking History Former Smoker Social History Other Social History: Good social support, , Local resident Ambulatory Status Independent Review of Systems Unable to Obtain ROS Patient condition (Limited ROS due to post ictal state - provides ROS) Constitutional: Reports: Fever (Recorded fever of 103F that has since resolved) Neurologic: Reports: Confusion (post ictal state following seizure), Seizure ( x3 ) Complete sys rev & neg: except as marked. Physical Exam Initial Vital Signs Vital Signs (First) Date Time Temp Pulse Resp B/P Pulse Ox O2 Delivery O2 Flow Rate FiO2 02/19/17 18:32 37 112 14 131/69 100 Room Air Initial VS: Reviewed Head / Eyes: Atraumatic, Normocephalic, PERRL Extremities: Vascular intact, Neuro intact, No swelling, No tenderness Skin: Warm, Dry, No cyanosis General/Constitutional: Awake, Alert Behavior: Positive: Agitated, Anxious Neck: Atraumatic, Supple Respiratory / Chest: Atraumatic, Breath sounds NL, Breath sounds = bilat, No respiratory distress Cardiovascular: Heart rate NL, Regular rhythm, Heart sounds NL, No gallop, No murmurs, No rubs Neurologic: CN II - XII intact Mental Status: Positive: Confused Rectum / Perineum: Atraumatic RECTUM: Assistant Farm Operations Manager present Post operative rectum Interpretation & Diagnostics Lab Results Interpretation Result Diagram: 02/19/17213402/19/172134 Test 02/19/17 21:35 White Blood Count 16.5th/mm3 (3.8-10.1) Red Blood Count 3.40mil/mm3 (3.90-5.20) Hemoglobin 9.3g/dL (12.0-15.6) Hematocrit 29.1% (35.0-46.0) Mean Corpuscular Volume 85.6fL (81-100) Mean Corpuscular Hemoglobin 27.4pg (27.0-35.0) Mean Corpuscular Hemoglobin Concent 32.0% (32.0-37.0) Red Cell Distribution Width 17.9% (12.3-15.4) Platelet Count 333bil/L (150-400) Neutrophils (%) (Auto) 86.7% (40-74) Lymphocytes (%) (Auto) 5.3% (14-46) Monocytes (%) (Auto) 7.7% (4-12) Eosinophils (%) (Auto) 0% (0-5) Basophils (%) (Auto) 0.1% (0-3) Sodium Level 134mEq/L (134-144) Potassium Level 3.2mEq/L (3.5-5.2) Chloride Level 95mEq/L (97-108) Carbon Dioxide Level 19mmol/L (18-29) Blood Urea Nitrogen 9mg/dL (6-24) Creatinine 0.64mg/dL (0.57-1.00) Estimat Glomerular Filtration Rate 139mL/min (>59) Glucose Level 110mg/dL (60-99) Calcium Level 9.6mg/dL (8.5-10.1) Total Bilirubin 0.4mg/dL (0.0-1.2) Aspartate Amino Transf (AST/SGOT) 22U/L (0-50) Alanine Aminotransferase (ALT/SGPT) 18U/L (0-32) Alkaline Phosphatase 73U/L (25-150) Total Protein 6.9g/dL (6.4-8.4) Albumin 4.2g/dL (3.4-5.0) Hold Patel Top Tube Received (Received) Re-Eval/Medical Decision Med Decision/Clinical Course 56-year-old female with a known seizure disorder and 33 generalized tonic-clonic seizures today. She is now experiencing a prolonged postictal state, per her this is not unusual for her. Had been given lorazepam 1 mg IV in the emergency department and also got Versed in the field. We gave her 300 mg of Lamictal here, a Lamictal level was sent for follow-up, she was noted to have low potassium this was supplemented with oral potassium here. As of midnight the patient is improved however still not at the point where I would feel comfortable discharging her although she verbalizes a desire to go home. I expect that she will clear hopefully soon and be dischargeable. According to her , she has missed several doses of Lamictal, I have advised against this. Re-Evaluation/Progress #1: Time of Eval: 22:32 Patient Status: Condition improved Re-Evaluation/Progress Note: Patient is re-evaluated. She is sleeping comfortably and is arousable to voice. Patient is better oriented and calm. She reports that her symptoms have improved. Re-Evaluation/Progress #2: Time of Eval: 23:34 Patient Status: Condition improved Re-Evaluation/Progress Note: is currently expressing concern over the patient's rectal bleeding. Patient is becoming increasingly responsive and is currently requesting discharge. Visualized anus which is inflamed, has minimal bleeding, and my estimate this is postoperative and expected Counseled Regarding: Diagnosis, Lab results, Need for follow-up, When/why to return to ED Discharge & Departure Shift Change Sign-Out Patient Care Transferred: Yes Discussed Complaint(s): Yes Laboratory Evaluation: Lab evaluation discussed Response to Therapy: Improved Additonal Information: Dr. Patel Impression: Primary Impression: Seizure Additional Impression: Post-ictal state Disposition: Home Discharge Condition All VS Reviewed: Yes Condition: Improved Additional Instructions: Thank you for trusting us with your care this evening. Your emergency department evaluation today included interview, examination and lab work. Your results are reassuring that there is no dangerous cause for concern at this time. Please continue to take Lamictal as directed. Schedule a follow up appointment with your primary care physician in the next 2- 3 days for a recheck. Please return to the ED if you develop any new or worsening symptoms. Referrals: Peng Sweeney DO (PCP) Jenny Burgos MD Care Transferred at: 00:00 Hollie Attestation Portions of this note were transcribed by Anais Cisneros. I, Dr. Johansen personally performed the history, physical exam and medical decision-making; I reviewed and confirmed the accuracy of the information in the transcribed note. Signed by: Hollie Valero, 02/20/17 0010. copies to: Jenny Burgos MD; Peng Sweeney Donald L MD Feb 19, 2017 18:59 ANAIS CISNEROS Feb 19, 2017 19:14
[2017-02-19] MEDS ORDERED: OXYC-474 PO (20:13)
[2017-02-19 21:52] LABS: BASOPHILS % (AUTO) 0.1 % (0-3); EOSINOPHILS % (AUTO) 0 % (0-5); MONOCYTES % (AUTO) 7.7 % (4-12); Mean Corpuscular Hemoglobin 27.4 pg (27.0-35.0); Mean Corpuscular Volume 85.6 fL (81-100); NEUTROPHILS % (AUTO) 86.7 % (40-74); Platelet Count 333 bil/L (150-400)
[2017-02-19 22:17] VITALS: BP 108/49; PULSE 90; RESP 16; O2SAT 100
[2017-02-19] MEDS ORDERED: lamoTRIgine 100 mg Tablet PO ONE (22:40)
[2017-02-19] MEDS ORDERED: Potassium Chloride 20 mEq/15 mL 15mL Oral Soln PO ONE (22:40)
[2017-02-19] MEDS ORDERED: 0.9% Sodium Chloride 1,000 ML IV ONE (23:40)
[2017-02-20] MEDS ORDERED: Ondansetron 8 mg ODT Tablet PO ONE (01:10)
[2017-02-20 01:25] VITALS: BP 134/92; PULSE 103; RESP 20; O2SAT 100
[2017-02-20 06:13] VITALS: BP 116/51; PULSE 98; RESP 16; O2SAT 100
--- NOTE | 2017-02-20 07:26 | DRSVH ---
PROCEDURE: CT BRAIN WITHOUT CONTRAST ([id number]) INDICATIONS: persistent confusion after 3 breakthru seizures TECHNIQUE: Noncontrast 4.5 mm thick angled axial sections acquired from the foramen magnum to the vertex, with c oronal reformats. COMPARISON: None. FINDINGS: Image quality: Excellent. CSF spaces: Basal cisterns are patent. No extra-axial fluid collections. Ventricles are normal in size and shape. Brain: No midline shift. No intracranial masses or hemorrhage. Gifford-white matter interface is norm al except for slight asymmetry in a reduced gifford-white differentiation at the posterior left occipita l region, potentially simply a manifestation of asymmetry in the calvarium and tilt of the patient du ring image acquisition. Skull and face: Calvarium and visualized facial bones are intact, without suspicious lesions. Sinuses: Visualized sinuses and mastoids are clear. IMPRESSION: No hemorrhage or mass is identified. The subtle asymmetry in gifford-white differentiation at the posterior left occipital area may simply represent an artifact of positioning of the patient and asymmetry in the calvarial structure in that area. If unusual symptomatology persists followup b y MR scanning would be recommended. Note: These findings are concordant with the preliminary interpretation, except for the discussion r elated to the subtle asymmetry in reduced gifford-white differentiation at the posterior left occipital region discussed above. Dictated by: Beto Oliver M.D. on 02/20/2017 at 7:19 Approved by: Beto Oliver M.D. on 02/20/2017 at 7:24
== END 2017-02-20 00:59 | disposition home or self-care (01) ==
LOC: SED 17:46 → EDBD 17:46 → SED 02-20 00:59
DX: R56.9 Unspecified convulsions (principal); Z87.891 Personal history of nicotine dependence; Z88.2 Allergy status to sulfonamides
CPT/HCPCS: 70450; 80053; 81002; 82542; 82948; 85025; 96361; 96374; 99285; J1885; J2060; J7030

== ENCOUNTER 2017-03-18 16:10 | Emergency (ER) | payer OTHER ==
[~2017-03-18] VITALS: Ht 177.8 cm; Wt 68.2 kg
[~2017-03-18 16:10] MED LIST changes: +OXYC-474 PO
[2017-03-18 16:26] VITALS: BP 128/77; PULSE 84; RESP 12; O2SAT 100
--- NOTE | 2017-03-18 18:11 | ED.REPORT ---
HPI-General Illness Date of Service March 18, 2017 ED Provider: Robi Johansen MD The pt is a 56 y/o female w/ a hx of chronic GI bleeds and abdominal melanoma presenting to the ED for a RBC transfusion. She was sent here by Dr. Trejo, oncologist. She has had two colonoscopies, which both failed and were cauterized , but she continued to experience rectal bleeding. She also had a hemorrhoidectomy roughly 4 weeks ago but is still continuing to lose blood. She has had a total of three blood transfusions as of today, w/ the last transfusion being 5 weeks ago, and is usually given three units of blood w/ no adverse reactions. She describes passing roughly 0.5 cups of red blood each time she has a bowel movement. She reports passing blood 4-5x/day before the surgery and 3-4x/day after the surgery and is trying to consume a liquid diet. She also reports feeling faint and experiences rectal pain with bowel movements. Nursing Notes Stated Complaint: NEEDS TRANSFUSION Chief Complaint: General Complaint Nursing Notes Reviewed: Yes Allergies: Coded Allergies: Sulfa (Sulfonamide Antibiotics) (Verified Allergy, Intermediate, hives/ rash, 02/11/17) Scheduled Lamotrigine (Lamotrigine) 100 Mg Tablet 100 MG PO QAM Lamotrigine (Lamotrigine) 100 Mg Tablet 200 MG PO QPM Polyethylene Glycol 3350 (Miralax) 17 Gm Powd.pack 17 GM PO DAILY Venlafaxine ER (Venlafaxine ER) 150 Mg Tab.er.24 150 MG PO DAILY Scheduled PRN Docusate Sodium (Colace) 100 Mg Capsule 100 MG PO Q2DAY PRN PRN For Constipation Oxycodone (Roxicodone) 5 Mg Tablet 5-10 MG PO every 6 hours PRN PRN For Pain Prochlorperazine Maleate (Compazine) 10 Mg Tablet 10 MG PO PRN For Nausea Sumatriptan (Imitrex) 100 Mg Tablet 100 MG PO PRN migraines MR x1/ NTE 200mg/24hr diphenhydrAMINE HCl (Benadryl) 25 Mg Capsule 25 MG PO Q4 PRN PRN For Nausea General Time Seen by MD: 18:11 Chief Complaint Other (RBC transfusion ) Hx Obtained From: Patient Arrived By: Walk-in Sudden in Onset?: No Symptom Duration: Intermittent Recent Healthcare: No recent hospitalization, Recent doctor visit Similar Sx Previous: Yes Past Medical History Past Medical History Seizures Anxiety Migraine Chronic GI Bleeds Pneumonia Reports: Cancer, Transient ischemic attack Past Surgical History Hemorrhoidectomy on 02/17 S/p colonoscopy (small internal hemorrhoid ) and cold biopsy forceps removal of a rectal polyp on 07/02/[address] Gildardo Maciel breast bx Removal of melanoma from abdominal skin Reports: Tonsillectomy Family History Noncontributory Smoking History Former Smoker Social History Other Social History: Good social support, , Local resident Ambulatory Status Independent Review of Systems rectal pain with bowel movements Full Review of Systems Constitutional: Denies: Chills, Fever GI: Reports: Bloody/tarry stool (bright red blood) Neurologic: Reports: Lightheaded Complete sys rev & neg: except as marked. Physical Exam Vital Signs Vital Signs Date Time Temp Pulse Resp B/P Pulse Ox O2 Delivery O2 Flow Rate FiO2 03/19/17 00:31 74 20 152/79 100 Room Air 03/19/17 00:24 36.6 77 13 152/59 98 Room Air 03/18/17 23:28 36.8 74 12 03/18/17 21:45 36.8 82 13 03/18/17 20:25 36.7 80 12 03/18/17 20:25 36.7 80 12 148/71 100 Room Air 03/18/17 19:25 36.8 72 18 150/80 Room Air 03/18/17 16:26 36.6 84 12 128/77 100 Room Air Initial VS: Reviewed General/Constitutional: Awake, Alert Head / Eyes: Atraumatic, Normocephalic ENT: Atraumatic, Airway patent Neck: Atraumatic, Supple, Full range of motion Respiratory / Chest: Atraumatic, Breath sounds NL, No respiratory distress, No rales, No rhonchi, No wheezing Cardiovascular: Heart rate NL, Regular rhythm, Heart sounds NL, No gallop, No murmurs, No rubs Abdomen: Soft, Non-tender Back: Atraumatic, Full range of motion Upper Extremities Upper Extremity / MS: Atraumatic, Full range of motion Lower Extremity / Pelvis / MS: Atraumatic, Full range of motion Skin: Atraumatic, Color NL, No rash, Warm, Dry Neurologic: Oriented X3, Speech NL, No motor deficits, No sensory deficits Psychiatric: Affect NL Abnormal Mood/Affect: Positive: Anxious Re-Eval/Medical Decision Med Decision/Clinical Course 56 yo Female with 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 Sent to us for transfusion. 3 units of red cells of been transfused, she will be discharged home to follow up with hematology. Source of Hx: Old records Time of Eval: 00:13 Patient Status: Condition improved Re-Evaluation/Progress Note: Pt rechecked, who is feeling significantly better following 3 units of RBC. Informed pt of plan for discharge. Pt understands and agrees with plan for discharge. F/U instructions and RTER warnings given. All questions addressed. Counseled Regarding: Diagnosis, Lab results, Need for follow-up, When/why to return to ED Discharge & Departure Primary Impression: Anemia Anemia type: iron deficiency Iron deficiency anemia type: chronic blood loss Qualified Code: D50.0 - Iron deficiency anemia secondary to blood loss ( chronic) Disposition: Home Discharge Condition All VS Reviewed: Yes Condition: Stable Additional Instructions: In the emergency department tonight we transfuse 3 units of packed red cells for an iron deficiency anemia. 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 Continue with previous home care. Return to the emergency department if you have an acute increase in blood loss, fevers shortness of breath or chest pain. Follow up with hematology next week. Referrals: Sushant Chery MD Scribe Attestation Portions of this note were transcribed by Saqib Mojica and Javier Reyes. I, Dr. Johansen personally performed the history, physical exam and medical decision- making; I reviewed and confirmed the accuracy of the information in the transcribed note. Signed by: Saqib Mojica and Sameera Carter, 03/19/17 and 0104. copies to: Sushant Chery MD, Donald L MD March 18, 2017 18:11 Saqib Mojica March 18, 2017 18:21 JAVIER REYES March 18, 2017 19:53
[2017-03-18 19:25] VITALS: BP 150/80; PULSE 72; RESP 18
[2017-03-18 20:25] VITALS: BP 148/71; PULSE 80; RESP 12; O2SAT 100
[2017-03-18 21:45] VITALS: BP 141/76; PULSE 82; RESP 13
[2017-03-18 23:28] VITALS: BP 148/89; PULSE 74; RESP 12
[2017-03-19 00:24] VITALS: BP 152/59; PULSE 77; RESP 13; O2SAT 98
[2017-03-19 00:31] VITALS: BP 152/79; PULSE 74; RESP 20; O2SAT 100
== END 2017-03-19 00:41 | disposition home or self-care (01) ==
LOC: SED 16:10
DX: D50.0 Iron deficiency anemia secondary to blood loss (chronic) (principal); Z87.01 Personal history of pneumonia (recurrent); Z86.73 Personal history of transient ischemic attack (TIA), and cerebral infarction without residual deficits; Z87.891 Personal history of nicotine dependence; Z98.890 Other specified postprocedural states; Z88.2 Allergy status to sulfonamides
CPT/HCPCS: 36415; 36430; 86922; 99285; P9021